=== PATIENT | male | born 1980 | race African-American/Black ===

== ENCOUNTER 2024-01-04 23:20 | Emergency (ER) | payer MEDICAID ==
[~2024-01-04] VITALS: Ht 175.3 cm; Wt 83.0 kg
[2024-01-04 23:24] VITALS: O2SAT 99
[2024-01-05] MEDS: TETRACAINE 0.5% OPHTH DROPS 4ML BOTHEYE ONE (00:22)
[2024-01-05] MEDS: FLUORESCEIN SODIUM 1MG/STRIP BOTHEYE ONE (00:22)
[2024-01-05] MEDS: BACITRACIN ZINC OINT UDPKT TOP ONE (00:22)
[2024-01-05] MEDS ORDERED: DEXT15DR5 EACHEYE (02:52)
[2024-01-05] MEDS ORDERED: ERYT1OIN6 EACHEYE (02:52)
[2024-01-05] MEDS ORDERED: BO1 TP (02:57)
[2024-01-05 03:45] VITALS: BP 129/74; PULSE 66; RESP 18; TEMP 98.6
== END 2024-01-05 03:45 | disposition home or self-care (01) ==
LOC: ER 23:20
DX: S40.811A Abrasion of right upper arm, initial encounter (principal); S05.01XA Injury of conjunctiva and corneal abrasion without foreign body, right eye, initial encounter; X58.XXXA Exposure to other specified factors, initial encounter; Y93.89 Activity, other specified; Y92.89 Other specified places as the place of occurrence of the external cause; Y99.8 Other external cause status
CPT/HCPCS: 99283